=== PATIENT | female | born 1990 | race Caucasian/White ===

== ENCOUNTER 2017-11-25 10:26 | Emergency (ER) | payer OTHER ==
[~2017-11-25] VITALS: Ht 172.7 cm; Wt 113.4 kg
[~2017-11-25 10:26] MED LIST: AMOX875 PO; CEPH500 PO; CYCL10 PO; Cleocin HCl300 MG PO; HYDACE10B PO; HYDACE5325 PO; IBUP600 PO; IBUP800 PO; NAPR500 PO; PENVK500 PO; PROBIOTIC1 EAC1 PO; PSEU120ER PO; RXCODGUASY PO; Veetids 500500 MG PO; Xanax0.5 MG PO
[2017-11-25] MEDS ORDERED: Prednisone20 MG PO (12:12)
[2017-11-25] MEDS ORDERED: Norco 10-325 T1 EACH PO (12:12)
[2017-11-25] MEDS ORDERED: Cleocin HCl300 MG PO (12:12)
[2018-05-20] MEDS ORDERED: ALBU90OI (09:00)
[2018-05-20] MEDS ORDERED: CLON.5 (09:00)
[2018-05-20] MEDS ORDERED: LAMO25 (09:00)
[2018-09-11] MEDS ORDERED: CLON1 (00:15)
[2018-09-12] MEDS ORDERED: Bactrim Ds Tab1 EACH PO (13:56)
[2018-09-12] MEDS ORDERED: Percocet 5-3251 EACH PO (14:34)
== END 2017-11-25 12:30 | disposition home or self-care (01) ==
LOC: ER 10:26
DX: J32.9 Chronic sinusitis, unspecified (principal); F17.200 Nicotine dependence, unspecified, uncomplicated; Z91.018 Allergy to other foods; Z79.899 Other long term (current) drug therapy
CPT/HCPCS: 70486; 96372; 99284; J1885

== ENCOUNTER 2017-12-01 09:44 | Emergency (ER) | payer OTHER ==
[~2017-12-01] VITALS: Ht 172.7 cm; Wt 113.4 kg
[~2017-12-01 09:44] MED LIST changes: +Norco 10-325 T1 EACH PO; +Prednisone20 MG PO
[2017-12-01] MEDS ORDERED: IBUP800 PO (10:56)
[2017-12-01] MEDS ORDERED: HYDR1TAB94 PO (10:56)
[2018-05-20] MEDS ORDERED: LAMO25 (09:00)
[2018-05-20] MEDS ORDERED: ALBU90OI (09:00)
[2018-05-20] MEDS ORDERED: CLON.5 (09:00)
[2018-09-11] MEDS ORDERED: CLON1 (00:15)
[2018-09-12] MEDS ORDERED: Bactrim Ds Tab1 EACH PO (13:56)
[2018-09-12] MEDS ORDERED: Percocet 5-3251 EACH PO (14:34)
== END 2017-12-01 11:05 | disposition home or self-care (01) ==
LOC: ER 09:44
DX: R22.0 Localized swelling, mass and lump, head (principal); Z91.018 Allergy to other foods; Z79.899 Other long term (current) drug therapy; Z79.52 Long term (current) use of systemic steroids; Z79.2 Long term (current) use of antibiotics; G40.909 Epilepsy, unspecified, not intractable, without status epilepticus; F17.200 Nicotine dependence, unspecified, uncomplicated
CPT/HCPCS: 99282

== ENCOUNTER 2017-12-13 07:30 | Emergency (ER) | payer OTHER ==
[~2017-12-13] VITALS: Ht 172.7 cm; Wt 113.4 kg
[~2017-12-13 07:30] MED LIST changes: +HYDR1TAB94 PO
[2017-12-13] MEDS ORDERED: IBUP800 PO (08:21)
[2017-12-13] MEDS ORDERED: Norco 5-325 Ta1 EACH PO (08:21)
[2018-05-20] MEDS ORDERED: ALBU90OI (09:00)
[2018-05-20] MEDS ORDERED: LAMO25 (09:00)
[2018-05-20] MEDS ORDERED: CLON.5 (09:00)
[2018-09-11] MEDS ORDERED: CLON1 (00:15)
[2018-09-12] MEDS ORDERED: Bactrim Ds Tab1 EACH PO (13:56)
[2018-09-12] MEDS ORDERED: Percocet 5-3251 EACH PO (14:34)
== END 2017-12-13 08:28 | disposition home or self-care (01) ==
LOC: ER 07:30
DX: D49.1 Neoplasm of unspecified behavior of respiratory system (principal); F17.200 Nicotine dependence, unspecified, uncomplicated; Z91.018 Allergy to other foods; Z79.899 Other long term (current) drug therapy
CPT/HCPCS: 99282

== ENCOUNTER 2018-12-10 06:06 | Day surgery (SDC) | payer OTHER ==
[~2018-12-10] VITALS: Ht 172.7 cm; Wt 134.8 kg
[~2018-12-10 06:06] MED LIST changes: +ALBU90OI; +Bactrim Ds Tab1 EACH PO; +CLON.5; +CLON1; +LAMO25; +Norco 5-325 Ta1 EACH PO; +Percocet 5-3251 EACH PO
--- NOTE | 2018-12-10 06:53 | NUR ---
12/10/18 0653 Francie Bhatt PREOP TEACHING DONE.
== END 2018-12-10 09:37 | disposition home or self-care (01) ==
LOC: ORSCSDS 06:06
PROVIDERS: Otolaryngology
PROC: 09BQ8ZX Excision of Right Maxillary Sinus, Via Natural or Artificial Opening Endoscopic, Diagnostic (ICD-10-PCS; principal; 2018-12-10 07:30)
DX: D14.0 Benign neoplasm of middle ear, nasal cavity and accessory sinuses (principal); J45.909 Unspecified asthma, uncomplicated; F17.210 Nicotine dependence, cigarettes, uncomplicated; Z79.899 Other long term (current) drug therapy; E66.01 Morbid (severe) obesity due to excess calories; Z68.41 Body mass index [BMI] 40.0-44.9, adult
CPT/HCPCS: 87070; 87075; 87102; 87205; 88305; J1100; J2250; J2405; J2710; J3010; J7120

== ENCOUNTER 2019-09-12 05:12 | Emergency (ER) | payer OTHER ==
[~2019-09-12] VITALS: Ht 172.7 cm; Wt 136.1 kg
[2019-09-12] MEDS ORDERED: Lamotrigine100 MG PO (05:43)
[2019-09-12] MEDS ORDERED: CLON1 (05:43)
[2019-09-12] MEDS ORDERED: Norco 5-325 Ta1 EACH PO (06:09)
[2019-09-12] MEDS ORDERED: Crutch1 EACH MISC (06:40)
== END 2019-09-12 07:00 | disposition home or self-care (01) ==
LOC: ER 05:12
DX: S82.62XA Displaced fracture of lateral malleolus of left fibula, initial encounter for closed fracture (principal); W01.198A Fall on same level from slipping, tripping and stumbling with subsequent striking against other object, initial encounter; Z88.8 Allergy status to other drugs, medicaments and biological substances; Z91.018 Allergy to other foods; Z79.899 Other long term (current) drug therapy; G40.909 Epilepsy, unspecified, not intractable, without status epilepticus; F31.81 Bipolar II disorder; F17.210 Nicotine dependence, cigarettes, uncomplicated
CPT/HCPCS: 29505; 73610; 99283-25

== ENCOUNTER 2019-09-17 11:10 | Day surgery (SDC) | payer OTHER ==
[~2019-09-17] VITALS: Ht 172.7 cm; Wt 136.4 kg
[~2019-09-17 11:10] MED LIST changes: +Crutch1 EACH MISC; +Lamotrigine100 MG PO
[2019-09-17] MEDS ORDERED: IBUP800 (11:58)
[2019-09-17] MEDS ORDERED: MIRENA1 EACH (11:59)
--- NOTE | 2019-09-17 12:05 | NUR ---
09/17/19 1205 Priscilla Mcmanus PT. SIGNED CONSENT FOR REFUSAL FOR TEST.
--- NOTE | 2019-09-17 14:51 | NUR ---
09/17/19 1451 Laura Toth A GENERALIZED BRUISING TO LEFT ANKLE
--- NOTE | 2019-09-17 15:58 | NUR ---
09/17/19 1558 Vikash Silverman SEE STEP DOWN FOR PAR VITAL SIGNS, CHARTING WAS DONE ON THAT SCREEN BY ACCIDENT.
== END 2019-09-17 16:35 | disposition home or self-care (01) ==
LOC: ORSCSDS 11:10
PROVIDERS: Podiatrist Foot & Ankle Surgery
PROC: 0QSK04Z Reposition Left Fibula with Internal Fixation Device, Open Approach (ICD-10-PCS; principal; 2019-09-17 12:30)
DX: S82.62XA Displaced fracture of lateral malleolus of left fibula, initial encounter for closed fracture (principal); J45.909 Unspecified asthma, uncomplicated; F17.210 Nicotine dependence, cigarettes, uncomplicated; K21.9 Gastro-esophageal reflux disease without esophagitis; G40.909 Epilepsy, unspecified, not intractable, without status epilepticus; E66.01 Morbid (severe) obesity due to excess calories; Z68.42 Body mass index [BMI] 45.0-49.9, adult; Z79.899 Other long term (current) drug therapy
CPT/HCPCS: C1713; J0171; J0690; J1100; J1885; J2250; J2405; J2704; J3010; J7120

== ENCOUNTER → 2020-07-10 | Outpatient (CLI) | payer OTHER ==
[~2020-07-10] MED LIST changes: +IBUP800; +MIRENA1 EACH
== END ==
LOC: LAB 19:03 → LAB SHORT 19:03
PROVIDERS: Family Medicine
DX: Z01.419 Encounter for gynecological examination (general) (routine) without abnormal findings (principal)
CPT/HCPCS: G0123

== ENCOUNTER → 2020-09-27 | Outpatient (CLI) | payer OTHER ==
[2020-09-29 04:08] LABS: CHLAMYDIA TRACHOMATIS, NAA Negative (Negative); NEISSERIA GONORRHOEAE, NAA Negative (Negative)
== END | disposition home or self-care (01) ==
LOC: LAB SHORT 14:30 → LAB UCHC 14:30
PROVIDERS: Family Medicine
DX: Z97.5 Presence of (intrauterine) contraceptive device (principal)
CPT/HCPCS: 87491; 87591

== ENCOUNTER 2021-09-06 00:09 | Emergency (ER) | payer OTHER ==
[~2021-09-06] VITALS: Ht 172.7 cm; Wt 127.0 kg
[2021-09-06] MEDS ORDERED: Seroquel Xr50 MG PO (00:16)
== END 2021-09-06 01:18 | disposition home or self-care (01) ==
LOC: ER 00:09
DX: S93.401A Sprain of unspecified ligament of right ankle, initial encounter (principal); G40.909 Epilepsy, unspecified, not intractable, without status epilepticus; F17.210 Nicotine dependence, cigarettes, uncomplicated; Z88.8 Allergy status to other drugs, medicaments and biological substances; Z91.018 Allergy to other foods; Z79.899 Other long term (current) drug therapy; W18.30XA Fall on same level, unspecified, initial encounter
CPT/HCPCS: 73610; 96374; 99283; J1885

== ENCOUNTER → 2024-12-21 | Outpatient (CLI) | payer OTHER ==
[~2024-12-21] MED LIST changes: +CHANTIX1 MG; +CLAR500CR; +PRED20; +Seroquel Xr50 MG PO; +VENL75ER
== END ==
LOC: LAB SHORT 17:41 → LAB 17:41
DX: L02.426 Furuncle of left lower limb (principal)
CPT/HCPCS: 87070; 87075; 87205

== ENCOUNTER → 2025-07-15 | Outpatient (CLI) | payer OTHER | LOC: LAB SHORT 15:02 → LAB 15:02 | DX: N39.0 Urinary tract infection, site not specified (principal); R31.9 Hematuria, unspecified | CPT/HCPCS: 87077; 87086; 87186 ==

== ENCOUNTER → 2025-08-02 | Outpatient (CLI) | payer OTHER ==
[2025-08-02 19:49] LABS: BASOPHILS ABSOLUTE AUTO 0.05 K/mm3 (0.00-0.23); BASOPHILS PERCENT AUTO 0 % (0-2); EOSINOPHILS ABSOLUTE AUTO 0.22 K/mm3 (0.00-0.68); EOSINOPHILS PERCENT AUTO 2 % (0-6); Hematocrit 47.1 % (33.0-51.0); Hemoglobin 15.4 g/dL (11.5-16.0); IMMATURE GRAN ABSOLUTE AUTO 0.04 K/mm3 (0.00-0.10); IMMATURE GRAN PERCENT AUTO 0 % (0-1); LYMPHOCYTES ABSOLUTE AUTO 3.73 K/mm3 (0.84-5.20); LYMPHOCYTES PERCENT AUTO 29 % (21-46); MONOCYTES ABSOLUTE AUTO 1.22 K/mm3 (0.16-1.47); MONOCYTES PERCENT AUTO 10 % (4-13); Mean Corpuscular HGB Conc 32.7 g/dL (31.5-36.5); Mean Corpuscular Volume 96 fL (80-100); NEUTROPHILS ABSOLUTE AUTO 7.58 K/mm3 (1.96-9.15); NEUTROPHILS PERCENT AUTO 59 % (41-73); NRBC ABSOLUTE 0.00 K/mm3 (0.00-0.02); NRBC Auto 0.0 /100 WBC (0.0-0.2); Platelet Count 337 K/mm3 (150-400); RDW Coefficient Variation 12.5 % (11.7-14.2); RDW Standard Deviation 44.7 fL (35.1-46.3)
[2025-08-02 21:18] LABS: Alanine Aminotransfer (ALT/SGP 36.0 U/L (12-78); Albumin, Blood 4.1 g/dL (3.4-5.0); Albumin/Globulin Ratio 1.1 (0.8-1.8); Anion Gap 7.0 mmol/L (3-11); Aspartate Aminotrans (AST/SGOT 31.0 U/L (12-37); Bilirubin, Total 0.3 mg/dL (0.1-1.0); Blood Urea Nitrogen 6.0 mg/dL (8-24); CO2, Blood 29.0 mmol/L (21-32); Calcium, Blood 9.5 mg/dL (8.5-10.1); Chloride, Blood 104.0 mmol/L (98-108); Creatinine, Blood 0.81 mg/dL (0.40-1.00); Globulin, Blood 3.6 g/dL (2.2-4.0); Glucose, Blood 82.0 mg/dL (70-99); Potassium, Blood 4.0 mmol/L (3.5-5.5); Sodium, Blood 136.0 mmol/L (136-145); Thyroid Stimulating Hormone 1.54 uIU/mL (0.360-4.800); Total Protein, Blood 7.7 g/dL (6.4-8.2)
== END ==
LOC: LAB SHORT 18:13 → LAB 18:13
PROVIDERS: Nurse Practitioner Psychiatric/Mental Health
DX: F31.81 Bipolar II disorder (principal)
CPT/HCPCS: 80053; 84443; 85025